=== PATIENT | male | born 1990 | race Caucasian/White ===

== ENCOUNTER 2017-04-01 12:02 | Emergency (ER) | payer OTHER ==
[2017-04-01 12:17] VITALS: BP 145/73; PULSE 93; TEMP 98.5; BMI 23.4
--- NOTE | 2017-04-01 14:00 | PDOC ---
History of Present Illness - General Chief Complaint: Sore Throat Stated Complaint: SORE THROAT, COUGH Time Seen by Provider: 04/01/17 12:56 History Source: Patient Exam Limitations: No Limitations - History of Present Illness Initial Comments: 04/01/17 13:58 26 yr male c/o sore throat and cough for 3 days no fever or chills. non smoker, no medical history. Past History - Past Medical History Allergies/Adverse Reactions: Allergies Allergy/AdvReac Type Severity Reaction Status Date / Time No Known Allergies Allergy Verified 04/01/17 12:17 Home Medications: Ambulatory Orders NK [No Known Home Medication] 04/01/17 Other medical history: NONE - Psycho/Social/Smoking Cessation Hx Anxiety: No Suicidal Ideation: No Smoking History: Never smoked Hx Alcohol Use: Yes (SOCIAL) Drug/Substance Use Hx: No Substance Use Type: None *Physical Exam - Vital Signs Last Vital Signs Temp Pulse Resp BP Pulse Ox 98.5 F 93 H 18 145/73 99 04/01/17 12:14 04/01/17 12:14 04/01/17 12:14 04/01/17 12:14 04/01/17 12:14 - Physical Exam General Appearance: Yes: Nourished, Appropriately Dressed HEENT: positive: EOMI, ACACIA, Normal ENT Inspection, TMs Normal, Pharynx Normal Neck: positive: Supple Respiratory/Chest: positive: Lungs Clear, Normal Breath Sounds. negative: Chest Tender Cardiovascular: positive: Regular Rhythm, Regular Rate ED Treatment Course - ADDITIONAL ORDERS Additional order review: 04/01/17 13:06 Group A Strep Rapid Antigen - Final Throat *DC/Admit/Observation/Transfer Diagnosis at time of Disposition: Viral pharyngitis - Discharge Dispostion Disposition: HOME Condition at time of disposition: Good - Referrals Referrals: [facility] [Provider Group] - Patient Instructions Additional Instructions: drink pleanty of water gargle with warm salt water 4-5 times a day take advil (ibuprofen, motrin over the counter) as prescribed for pain you can get any over the counter cough and sore throat drops/lozengers you choose return to er for any worsening symptoms or follow with [facility] for follow up
[2017-04-01] MEDS ORDERED: ALBUTEROL SO4 0.083% IH SOL 2.5 MG/3 ML VIAL.NEB. NEB ONE ×2 (14:01→14:04)
== END 2017-04-01 14:18 | disposition home or self-care (01) ==
LOC: JERFT 12:02
PROC: 3E0F7GC Introduction of Other Therapeutic Substance into Respiratory Tract, Via Natural or Artificial Opening (ICD-10-PCS; principal; 2017-04-01)
DX: J02.8 Acute pharyngitis due to other specified organisms (principal); B97.89 Other viral agents as the cause of diseases classified elsewhere
CPT/HCPCS: 87070; 87430; 94640; 99281-25

== ENCOUNTER 2017-06-26 17:29 | Emergency (ER) | payer OTHER ==
[2017-06-26 17:49] VITALS: BP 142/89; PULSE 110; BMI 22.3
[2017-06-26] MEDS ORDERED: IBUPROFEN 400 MG TABLET (FP) PO ONE ×2 (18:27→18:32)
--- NOTE | 2017-06-26 18:36 | PDOC ---
History of Present Illness - General Chief Complaint: Cold Symptoms Stated Complaint: HEADACHE Time Seen by Provider: 06/26/17 18:18 History Source: Patient Exam Limitations: No Limitations - History of Present Illness Initial Comments: 06/26/17 18:34 27 yr male with fever and sore throat and pain with deep breath and diarrhea since this AM. no sick contacts, pt has no medical history, no surgical history. denies abd pain , neg nausea or vomiting. no urinary complaints. 06/26/17 19:56 Past History - Past Medical History Allergies/Adverse Reactions: Allergies Allergy/AdvReac Type Severity Reaction Status Date / Time No Known Allergies Allergy Verified 06/26/17 17:46 Home Medications: Ambulatory Orders NK [No Known Home Medication] 04/01/17 Other medical history: denies. - Psycho/Social/Smoking Cessation Hx Anxiety: No Suicidal Ideation: No Smoking History: Current some day smoker Have you smoked in the past 12 months: Yes Information on smoking cessation initiated: No Hx Alcohol Use: Yes (SOCIAL) Drug/Substance Use Hx: No Substance Use Type: None *Physical Exam - Vital Signs Last Vital Signs Temp Pulse Resp BP Pulse Ox 102.2 F H 110 H 19 142/89 100 06/26/17 17:46 06/26/17 17:46 06/26/17 17:46 06/26/17 17:46 06/26/17 17:46 - Physical Exam General Appearance: Yes: Nourished, Appropriately Dressed HEENT: positive: EOMI, ACACIA. negative: Pharyngeal Erythema, Tonsillar Exudate Neck: positive: Supple Respiratory/Chest: positive: Lungs Clear, Normal Breath Sounds Cardiovascular: positive: Regular Rhythm, Regular Rate Gastrointestinal/Abdominal: positive: Normal Bowel Sounds, Soft. negative: Tender Musculoskeletal: positive: Normal Inspection Extremity: positive: Normal Capillary Refill, Normal Inspection, Normal Range of Motion Integumentary: positive: Normal Color, Dry, Warm Neurologic: positive: police inspector II-XII NML intact, Fully Oriented, Alert, Normal Mood/ Affect, Normal Response, Motor Strength 5/5 ED Treatment Course - RADIOLOGY Radiology Studies Ordered: Category Date Time Status CHEST PA & LAT [RAD] Stat Radiology 06/26/17 18:34 Ordered - Medications Given in the ED: ED Medications Discontinued Medications Generic Name Dose Route Start Last Admin Trade Name Freq PRN Reason Stop Dose Admin Ibuprofen 800 mg 06/26/17 18:27 06/26/17 18:33 Motrin - PO 06/26/17 18:28 800 mg ONCE ONE Administration Medical Decision Making - Medical Decision Making 06/26/17 18:55 cc: fever,sore throat, pain with deep breath started this AM denies drug use, pos smoking history non toxic will give ibuprofen 800mg now and recheck temp , rapid strep 06/26/17 19:49 negative strep negative chest xray will check flu pt feels better wants to go home 06/27/17 11:48 flu negative. spoke to pt today and he is feeling better tolerating fluids and solids well no vomiting or diarrhea no fever. *DC/Admit/Observation/Transfer Diagnosis at time of Disposition: Viral illness - Discharge Dispostion Disposition: HOME Condition at time of disposition: Good - Referrals Referrals: [facility] [Primary Care Provider] - - Patient Instructions Additional Instructions: drink pleanty of fluids take motrin 600mg every 6hrs for fever or chills bland diet rice, toast bannanas return if any worsening symptoms or see your doctor in 2 days for follow up
[2017-06-26 19:35] VITALS: TEMP 100.1
== END 2017-06-26 19:58 | disposition home or self-care (01) ==
LOC: JERFT 17:29
DX: B34.9 Viral infection, unspecified (principal)
CPT/HCPCS: 71020-TC; 87070; 87430; 87804; 99281-25

== ENCOUNTER 2018-11-22 18:55 | Emergency (ER) | payer OTHER ==
[2018-11-22 19:13] VITALS: BMI 22.3
--- NOTE | 2018-11-22 19:19 | PDOC ---
History of Present Illness - General Chief Complaint: Seizure Stated Complaint: SEIZURE Time Seen by Provider: 11/22/18 19:19 History Source: Patient Exam Limitations: Clinical Condition - History of Present Illness Initial Comments: Pt is a 28 yo M, with PMH of meningioma, who is presenting via EMS after a witnessed generalized tonic-clonic sz. Pt was at work, when his coworkers found him on the floor shaking and was unresponsive. They do not know if he fell or hit his head. Pt was post-ictal, and was unsure of where he was. Pt currently complains only of mild headache and photophobia. Pt was on Topamax for sz prophylaxis after meningioma dx, but stopped taking it "maybe a couple of months ago" when his insurance lapsed. His last radiation treatment for meningioma was "during the summer May or June" and did not follow-up with any further appointments (Onc team at [facility]). He lives in a home with his friend and the friend's family members. He is unsure of when his last sz was, but knows he had them in the past. Pt states he has been feeling very tired lately, with nausea, nasal congestion, polydipsia and polyuria. Pt denies any recent fevers/chills, vision changes, chest pain, palpitations, SOB, vomiting, abdominal pain, urinary symptoms, diarrhea/constipation, or leg swelling. Social: Pt denies any cigarette, alcohol, or drug use. Remote history of THC. Pt denies any recent travel or sick contacts. Surgical: no relevant history. Family: grandparents with CAD/HTN/PR. 11/22/18 20:16 Past History - Travel Traveled outside of the country in the last 30 days: No Close contact w/someone who was outside of country & ill: No - Past Medical History Allergies/Adverse Reactions: Allergies Allergy/AdvReac Type Severity Reaction Status Date / Time No Known Allergies Allergy Verified 06/26/17 17:46 Home Medications: Ambulatory Orders Levetiracetam [Keppra] 500 mg PO BID 30 Days #60 tablet 11/22/18 Cancer: Yes (brain tumor) COPD: No CHF: No Diabetes: No HTN: No Hypercholesterolemia: No - Surgical History Abdominal Surgery: No Cardiac Surgery: No GI Surgery: No Neurologic Surgery: No - Family Disease History Family Disease History: Heart Disease: Grandparents - Suicide/Smoking/Psychosocial Hx Smoking History: Unknown if ever smoked Have you smoked in the past 12 months: No Information on smoking cessation initiated: No Hx Alcohol Use: No Drug/Substance Use Hx: No Substance Use Type: None Review of Systems - Review of Systems Able to Perform ROS?: Yes Is the patient limited Lao proficient: No Constitutional: Yes: Weight Stable. No: Chills, Diaphoresis, Fever, Loss of Appetite, Weakness HEENTM: Yes: Nose Congestion. No: Blurred Vision, Double Vision, Nose Bleeding , Throat Pain, Throat Swelling, Difficulty Swallowing Respiratory: No: Cough, Orthopnea, Shortness of Breath Cardiac (ROS): Yes: Syncope. No: Chest Pain, Edema, Irregular Heart Rate, Lightheadedness, Palpitations, Chest Tightness ABD/GI: Yes: Nausea. No: Constipated, Diarrhea, Poor Appetite, Poor Fluid Intake, Vomiting, Abdominal cramping : No: Burning, Dysuria, Frequency, Hematuria, Pain, Urgency Musculoskeletal: No: Back Pain, Joint Pain, Muscle Weakness, Neck Pain Integumentary: No: Rash Neurological: Yes: See HPI, Headache, Seizure. No: Paresthesia, Tingling, Tremors, Weakness, Unsteady Gait, Ataxia, Dizziness Psychiatric: No: Sleep Pattern Change, Change in Appetite Endocrine: Yes: Increased Thirst, Increased Urine. No: Intolerance to Cold, Intolerance to Heat, Change in Weight Hematologic/Lymphatic: No: Anemia, Blood Clots, Easy Bleeding, Easy Bruising All Other Systems: Reviewed and Negative *Physical Exam - Vital Signs Last Vital Signs Temp Pulse Resp BP Pulse Ox 98.0 F 86 16 140/85 100 11/22/18 18:55 11/22/18 18:55 11/22/18 18:55 11/22/18 18:55 11/22/18 18:55 - Physical Exam Comments: PE showed pt alert and oriented, mildly confused but able to answer questions. Mild photophobia, no neck stiffness or meningeal signs. security systems sales representative generally intact, muscular strength and sensation intact. Pharyngeal erythema with tonsillar swelling, no exudate. Dry nasal discharge. No evidence of tongue biting or incontinence. Clear heart and lung sounds, no JVD, b/l pedal edema, or heart murmur. No abdominal or CVA tenderness to palpation, no rebound, no guarding. 11/22/18 20:33 General Appearance: Yes: Nourished, Appropriately Dressed. No: Apparent Distress HEENT: positive: EOMI, ACACIA, Normal Voice, Symmetrical, TMs Normal, Pharynx Normal, Photophobia, Pharyngeal Erythema, Tonsillar Erythema, Nasal Congestion, Hearing Grossly Normal. negative: Normal ENT Inspection, Pale Conjunctivae, Scleral Icterus (R), Scleral Icterus (L), Muffled/Hoarse voice, Tonsillar Exudate, Rhinorrhea, Sinus Tenderness, TM Bulging, TM Dull, TM Erythema, Lesions , Excessive drooling, Thrush Neck: positive: Trachea midline, Normal Thyroid, Supple. negative: Tender, Rigid, Decreased range of motion, Stridor, Lymphadenopathy (R), Lymphadenopathy (L), Rigidity Respiratory/Chest: positive: Lungs Clear, Normal Breath Sounds. negative: Chest Tender, Respiratory Distress, Accessory Muscle Use, Crackles, Stridor, Wheezing Cardiovascular: positive: Regular Rhythm, Regular Rate, S1, S2. negative: Edema , JVD, Murmur Vascular Pulses: Carotid (R): 4+, Carotid (L): 4+ Gastrointestinal/Abdominal: positive: Normal Bowel Sounds, Flat, Soft. negative : Tender, Organomegaly, Pulsatile Mass, Distended, Guarding, Rebound Rectal Exam: positive: deferred Lymphatic: negative: Adenopathy, Tenderness Musculoskeletal: positive: Normal Inspection. negative: CVA Tenderness Extremity: positive: Normal Capillary Refill, Normal Inspection, Normal Range of Motion, Pelvis Stable. negative: Tender, Pedal Edema Integumentary: positive: Normal Color, Dry, Warm. negative: Jaundice, Clammy, Diaphoresis, Rash Neurologic: positive: security systems sales representative II-XII NML intact, Fully Oriented, Alert, Normal Mood/ Affect, Normal Response, Motor Strength 5/5, Confused (slight confusion, but answers most questions). negative: EOM Palsy, Facial Droop, Numbness, Sensory Deficit, Finger to Nose Moderate Sedation - Procedure Monitoring Vital Signs: Procedure Monitoring Vital Signs Temperature 98.0 F 11/22/18 18:55 Pulse Rate 86 11/22/18 18:55 Respiratory Rate 16 11/22/18 18:55 Blood Pressure 140/85 11/22/18 18:55 O2 Sat by Pulse Oximetry (%) 100 11/22/18 18:55 ED Treatment Course - LABORATORY CBC & Chemistry Diagram: 11/22/18 19:34 11/22/18 19:34 Medical Decision Making - Medical Decision Making Pt was seen at bedside, also will be seen by attending Dr. Dumont. Pt is a 28 yo M, with PMH of meningioma, who is presenting via EMS after a witnessed generalized tonic-clonic sz. Pt was at work, when his coworkers found him on the floor shaking and was unresponsive. They do not know if he fell or hit his head. Pt was post-ictal, and was unsure of where he was. Pt currently complains only of mild headache and photophobia. Pt was on Topamax for sz prophylaxis after meningioma dx, but stopped taking it "maybe a couple of months ago" when his insurance lapsed. His last radiation treatment for meningioma was "during the summer May or June" and did not follow-up with any further appointments ( Neuro team/Dr. Alissa Dunham at [facility]). He lives in a home with his friend and the friend's family members. He is unsure of when his last sz was, but knows he had them in the past. Pt states he has been feeling very tired lately, with nausea, nasal congestion, polydipsia and polyuria. Pt denies any recent fevers/ chills, vision changes, chest pain, palpitations, SOB, vomiting, abdominal pain , urinary symptoms, diarrhea/constipation, or leg swelling. Vitals stable, pt afebrile. PE showed pt alert and oriented, mildly confused but able to answer questions. Mild photophobia, no neck stiffness or meningeal signs. security systems sales representative generally intact, muscular strength and sensation intact. Pharyngeal erythema with tonsillar swelling, no exudate. Dry nasal discharge. No evidence of tongue biting or incontinence. Clear heart and lung sounds, no JVD, b/l pedal edema, or heart murmur. No abdominal or CVA tenderness to palpation, no rebound, no guarding. Considering medication non-compliance, spread of meningioma, electrolyte imbalances, preceding illness (influenza, strep throat, URI), illicit drug use. Ordered work-up including CBC, CMP, Mg, influenza, strep, UA, urine tox, urine culture, non-contrast head CT. Provided 650 mg PO tylenol, 1 g IVPB keppra, and 4 mg IV zofran for improvement of nausea and headache. Will continue to reassess pt and monitor for symptomatic improvement. 11/22/18 19:35 CBC: WBC 12.5 (infectious vs sz activity) UA: trace ketones, 1+ blood; micro negative for infection. 11/22/18 19:46 Pt was taken for head CT, pending read. CMP and Mg WNL Utox negative Influenza and strep throat negative 11/22/18 20:34 Impression: No evidence of a focal intracranial lesion or hemorrhage seen. Correlate clinically to determine further evaluation and follow-up. Correlation with a contrast-enhanced MRI of the brain could be obtained to evaluate for a meningioma, considering the clinical history. 11/22/18 21:17 Spoke with [facility] team (Neurology - Dr. Zamudio). She stated the pts last visit in November 2017 for syncopal episodes. MRI and EEG were done at that time and were normal, no meningioma. She stated Dr. Alissa Dunham left [facility], so the pt must have followed her in a different hospital or clinic. She does not know any medication or dosage that was prescribed to him. Calling Dr. Ghosh (on-call Neurology) for further suggestions and will likely admit pt for observation for consult and further work-up/determining medications. 11/22/18 21:58 Hospitalist team will come to see the pt. Awaiting return call from Dr. Ghosh. 11/22/18 22:19 Second page sent to neurology. 11/22/18 22:38 Dr. Ghosh suggested 500 mg PO keppra, and to be seen outpatient in clinic. He will follow the pt. Sent keppra to pt pharmacy. Pts coworkers are at bedside to take the pt home and to pickle water pump operator his prescriptions. Pt had no further sz activity in the department. Considering normal lab results and imaging, pt can be discharged to home with follow-up. Pt advised to follow-up with PCP in 1-2 days and has been referred to neurology (Dr. Ghosh). Strict return precautions provided with pt understanding. 11/22/18 22:49 *DC/Admit/Observation/Transfer Diagnosis at time of Disposition: Seizure, Meningioma - Discharge Dispostion Disposition: HOME Condition at time of disposition: Improved Decision to Admit order: No - Prescriptions Prescriptions: Levetiracetam [Keppra] 500 mg PO BID 30 Days #60 tablet - Referrals Referrals: [facility] [Provider Group] Leon Ghosh MD [Staff Physician] - - Patient Instructions Printed Discharge Instructions: DI for Seizure Disorder -- Adult Additional Instructions: You were seen in the ER today for a seizure. The results of your labs and imaging today were normal. Please follow-up with your primary care doctor and neurology within 1-2 days to discuss your visit and make sure your symptoms have improved. Please return to the ER if you have any further seizure activity or confusion, development of fevers or chills, loss of consciousness, inability to tolerate food or fluids, or any other concerns. - Post Discharge Activity
[2018-11-22] MEDS ORDERED: ACETAMINOPHEN 325 MG TABLET (FP) PO ONE (19:21)
[2018-11-22] MEDS ORDERED: ONDANSETRON 4 MG/2 ML VIAL IVPUSH ONE (19:21)
[2018-11-22 19:38] LABS: URINE APPEARANCE CLEAR; URINE BILIRUBIN NEGATIVE (<2.0 mg/dL); URINE COLOR STRAW; URINE GLUCOSE (UA) NEGATIVE (NEGATIVE); URINE KETONE TRACE (NEGATIVE); URINE LEUK ESTERASE NEGATIVE (NEGATIVE); URINE NITRITE NEGATIVE (NEGATIVE); URINE PROTEIN NEGATIVE (NEGATIVE); URINE UROBILINOGEN NEGATIVE mg/dL (0.2-1.0)
[2018-11-22 19:42] LABS: BASO % 0.5 % (0-2.0); EOS % 0.2 % (0-4.5); HEMATOCRIT 45.5 % (35.4-49); HEMOGLOBIN 15.5 GM/dL (11.7-16.9); LYMPH % 8.7 % (8-40); MCH 29.7 pg (25.7-33.7); MCHC 34.1 g/dl (32.0-35.9); MEAN CELL VOLUME 87.3 fl (80-96); MEAN PLT VOLUME 8.9 fl (7.5-11.1); MONO % 2.6 % (3.8-10.2); PLATELET COUNT 212 K/MM3 (134-434); RBC 5.22 M/mm3 (4.00-5.60); RDW 13.4 % (11.9-15.9); WHITE BLOOD COUNT 12.5 K/mm3 (4.0-10.0)
[2018-11-22] MEDS ORDERED: levETIRAcetam 500 MG/5 ML INJECTION VIAL IVPB ONE ×2 (19:43→19:52)
[2018-11-22] MEDS ORDERED: ACETAMINOPHEN 325 MG TABLET (FP) ONE (19:53)
[2018-11-22] MEDS ORDERED: ONDANSETRON 4 MG/2 ML VIAL ONE (19:53)
[2018-11-22 20:06] LABS: COCAINE, UR NEGATIVE ng/ml (CUTOFF=300); METHADONE, UR NEGATIVE ng/ml (CUTOFF=300); OPIATES, URI NEGATIVE ng/ml (CUTOFF=300); PHENCYCLIDINE,URINE NEGATIVE ng/ml (CUTOFF=25); URINE BARBITURATES NEGATIVE ng/ml (CUTOFF=200); URINE BENZODIAZEPINES NEGATIVE ng/ml (CUTOFF=200)
[2018-11-22 20:07] LABS: URINE AMPHETAMINES NEGATIVE ng/ml (CUTOFF=500)
[2018-11-22 20:07] LABS: ALBUMIN 4.8 g/dl (3.4-5.0); ALK PHOS 66 U/L (45-117); ANION GAP 9 MMOL/L (8-16); BILIRUBIN,TOTAL 0.3 mg/dL (0.2-1); BLOOD UREA NITROGEN 13 mg/dL (7-18); CALCIUM 8.9 mg/dL (8.5-10.1); CHLORIDE 107 mmol/L (98-107); CO2 26 mmol/L (21-32); CREATININE 0.9 mg/dL (0.55-1.3); GLUCOSE,RANDOM 105 mg/dL (74-106); MAGNESIUM 2.4 mg/dL (1.8-2.4); POTASSIUM 3.5 mmol/L (3.5-5.1); SGOT/AST 14 U/L (15-37); SGPT/ALT 31 U/L (13-61); SODIUM 142 mmol/L (136-145); TOT PROT 7.8 g/dl (6.4-8.2)
--- NOTE | 2018-11-22 21:35 | PDOC ---
Attending Attestation - HPI HPI: 11/22/18 21:36 The patient is a 28 year old male, with a significant past medical history of brain meningioma (last radiation summer 2017) and HTN (untreated), who presents to the emergency department today via EMS complaining of headache s/p seizure ( noncompliant with topamax due to insurance loss) and associated photophobia. The patients cousin reports he was at work when his co-workers found him shaking on the floor. As per patients cousins the seizure lasted 3-5 minutes. The patient denies tongue biting. He denies other vision changes. Denies any urinary or bowel incontinence at the time of the seizure. The patient denies recent fevers, chills, headache or dizziness. He denies recent nausea, vomit, diarrhea or constipation. He denies recent dysuria, frequency, urgency or hematuria. He denies recent chest pain or shortness of breath. Allergies: NKA Past surgical history: None reported. Neurologist: Dr. Shantal Dunham #[phone] (last visit: Nov 2017) - Physicial Exam PE: 11/22/18 21:37 GENERAL: Well developed, well nourished. Awake and alert. No acute distress. HEENT: No tongue trauma. No scalp laceration. Normocephalic, atraumatic. PERRLA, EOMI. No conjunctival pallor. Sclera are non-icteric. Moist mucous membranes. Oropharynx is clear. NECK: Supple. Full ROM. No JVD. Carotid pulses 2+ and symmetric, without bruits. No thyromegaly. No lymphadenopathy. CARDIOVASCULAR: Regular rate and rhythm. No murmurs, rubs, or gallops. Distal pulses are 2+ and symmetric. PULMONARY: No evidence of respiratory distress. Lungs clear to auscultation bilaterally. No wheezing, rales or rhonchi. ABDOMINAL: Soft. Non-tender. Non-distended. No rebound or guarding. No organomegaly. Normoactive bowel sounds. MUSCULOSKELETAL Normal range of motion at all joints. No bony deformities or tenderness. No CVA tenderness. EXTREMITIES: No cyanosis. No clubbing. No edema. No calf tenderness. SKIN: Warm and dry. Normal capillary refill. No rashes. No jaundice. NEUROLOGICAL: +Postictal. Alert, awake, appropriate. Cranial nerves 2-12 intact. No deficits to light touch and temperature in face, upper extremities and lower extremities. No motor deficits in the in face, upper extremities and lower extremities. Normoreflexic in the upper and lower extremities. Normal speech. Toes are down-going bilaterally. PSYCHIATRIC: Cooperative. Good eye contact. Appropriate mood and affect. - Medical Decision Making 11/22/18 21:37 Dr. Shantal Dunham was paged via phone service. Awaiting call back. 11/22/18 21:[address] Zamudio, cotton machine operator for patient's neurologist Dr. Dunham, case discussed with resident Dr. Hdez. <Racheal Evangelista - Last Filed: 11/22/18 21:56> - Resident Resident Name: Violeta Hdez - ED Attending Attestation I have performed the following: I have examined & evaluated the patient, The case was reviewed & discussed with the resident, I agree w/resident's findings & plan, Exceptions are as noted - Medical Decision Making 11/22/18 22:49 pt has no focal neuro deficits at si time. He is conversant,axox3 but does not remember his medications because he has not taken them in a long time due to insurance issues. He currently is employed and has medical insurance It is not clear if this pt had a meningioma after speaking to the [facility] neurologist who saw him for syncopal episodes last November ct scan head no evidence of meningioma We spoke with neurology Dr. Ghosh who recommended the pt be started on keppra 500 BID and followup with Dr Ghosh in the clinic IMP seizures <Radha Dumont - Last Filed: 11/22/18 22:54> Attestations - Attestations 11/22/18 21:39 Documentation prepared by Racheal Evangelista, acting as medical education manager for Radha Dumont MD. <Racheal Evangelista - Last Filed: 11/22/18 21:56>
[2018-11-22 23:14] VITALS: BP 136/78; PULSE 88; TEMP 98.5
--- NOTE | 2018-11-23 16:44 | EKG ---
Test Reason : Blood Pressure : / mmHG Vent. 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 ABNORMAL ECG Confirmed by MD SHOLA, BRONSON ([id number]) on 11/23/2018 4:43:52 PM Referred By: Confirmed By:BRONSON JOLLEY MD
== END 2018-11-22 23:14 | disposition home or self-care (01) ==
LOC: JER 18:55 → SUPCPDRO 18:55 → JER 23:14
PROC: 3E033GC Introduction of Other Therapeutic Substance into Peripheral Vein, Percutaneous Approach (ICD-10-PCS; principal; 2018-11-22)
PROC: 3E033GC Introduction of Other Therapeutic Substance into Peripheral Vein, Percutaneous Approach (ICD-10-PCS; 2018-11-22)
DX: R56.9 Unspecified convulsions (principal); I10 Essential (primary) hypertension
CPT/HCPCS: 36415; 70450-TC; 80053; 80307; 81003; 81015; 83735; 85025; 87070; 87086; 87804; 87880; 93005; 93010; 96374; 96375; 99283-25

== ENCOUNTER 2019-11-01 17:06 | Emergency (ER) | payer OTHER ==
--- NOTE | 2019-11-01 17:58 | PDOC ---
History of Present Illness - General Chief Complaint: Seizure Stated Complaint: SEIZURE APPROX 10 MINS AGO Time Seen by Provider: 11/01/19 17:58 History Source: Patient - History of Present Illness Initial Comments: 11/01/19 19:06 Mr. Zheng is a 29 y/o man with hx epilepsy p/w witnessed seizure 30 min prior to arrival. He is accompanied by his partner who contributes to the history. His partner reports that while they were driving he said something unusual and nonsensical, and when he turned to look at him Mr. Zheng was staring forward blankly. His partner pulled the car over and removed his seatbelt, and Mr. Zheng began to seize for approx 30 seconds. He was unresponsive for approx one minute and had a brief post-ictal phase. 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 He reports taking Keppra twice daily, though he cannot recall the dosage. He reports that he typically takes it once in the morning, and once twelve hours later, although this has become inconsistent with his finals schedule. His prior neurologist was Dr. Shantal Andino at [facility], although she changed practices and he has not followed up with a new neurologist in the last year. He also has not followed with a PCP in the last year either. He denies any insurance difficulties or other barriers to attaining his AEDs. He denies any drug use. His last seizure was last week, and he endorses some cough, shortness of breath, and generalized fatigue. He did not present to the hospital at that time. His most recent seizure before that was in July, and November before that. Past History - Past Medical History Allergies/Adverse Reactions: Allergies Allergy/AdvReac Type Severity Reaction Status Date / Time No Known Allergies Allergy Verified 11/01/19 17:36 Home Medications: Ambulatory Orders Levetiracetam [Keppra] 500 mg PO BID 30 Days #60 tablet 11/22/18 Cancer: Yes (brain tumor) COPD: No CHF: No Diabetes: No HTN: No Hypercholesterolemia: No - Surgical History Abdominal Surgery: No Cardiac Surgery: No GI Surgery: No Neurologic Surgery: No - Psycho Social/Smoking Cessation Hx Smoking History: Current some day smoker Have you smoked in the past 12 months: Yes Hx Alcohol Use: Yes (SOCIAL) Drug/Substance Use Hx: No Substance Use Type: None Review of Systems - Review of Systems Able to Perform ROS?: Yes Comments:: 11/01/19 19:15 ROS: GENERAL/CONSTITUTIONAL: Chills, fever, generalized weakness. HEAD, EYES, EARS, NOSE AND THROAT: No change in vision. No ear pain or discharge. No sore throat. CARDIOVASCULAR: Shortness of breath. No chest pain RESPIRATORY: Cough. No wheezing, or hemoptysis. GASTROINTESTINAL: No nausea, vomiting, diarrhea or constipation. GENITOURINARY: No dysuria, frequency, or change in urination. MUSCULOSKELETAL: No joint or muscle swelling or pain. No neck or back pain. SKIN: No rash NEUROLOGIC: No headache, vertigo, loss of consciousness, or change in strength/ sensation. ENDOCRINE: No increased thirst. No abnormal weight change HEMATOLOGIC/LYMPHATIC: No anemia, easy bleeding, or history of blood clots. ALLERGIC/IMMUNOLOGIC: No hives or skin allergy. *Physical Exam - Physical Exam 11/01/19 19:16 PE: GENERAL: Awake, alert, and fully oriented, in no acute distress HEAD: No signs of trauma, normocephalic, atraumatic EYES: PERRLA, EOMI, sclera anicteric, conjunctiva clear ENT: Auricles normal inspection, hearing grossly normal, nares patent, oropharynx clear without exudates. Moist mucosa NECK: Normal ROM, supple, no lymphadenopathy, JVD, or masses LUNGS: No distress, speaks full sentences, clear to auscultation bilaterally HEART: Regular rate and rhythm, normal S1 and S2, no murmurs, rubs or gallops, peripheral pulses normal and equal bilaterally. ABDOMEN: Soft, nontender, normoactive bowel sounds. No guarding, no rebound. No masses EXTREMITIES : Normal inspection, Normal range of motion, no edema. No clubbing or cyanosis NEUROLOGICAL: Cranial nerves II through XII grossly intact. Normal speech, normal gait, no focal sensorimotor deficits SKIN: Warm, Dry, normal turgor, no rashes or lesions noted ED Treatment Course - LABORATORY CBC & Chemistry Diagram: 11/01/19 19:35 11/01/19 19:35 Medical Decision Making - Medical Decision Making 11/01/19 19:17 29M w/hx epilepsy p/w witnessed seizure while driving Discharge - Discharge Information Problems reviewed: Yes Clinical Impression/Diagnosis: Seizure, Influenza A Condition: Stable Disposition: HOME - Admission No - Follow up/Referral Referrals: Leon Ghosh MD [Staff Physician] - [facility] [place] [facility] [place] [Provider Group] - Patient Discharge Instructions Patient Printed Discharge Instructions: DI for Seizure Disorder -- Adult, DI for Influenza -- Adult Additional Instructions: You were seen in the ER after a seizure. You tested positive for Influenza A. Please be sure to follow up with Neurology as soon as possible, in the next 2-3 days. Also be sure to follow up with your primary care provider as soon as possible, in the next 7 days. Be sure to take your medications as prescribed, as missing doses can lead to seizures. It is possible that a combination of the infection, lack of sleep, and missing medication doses led to the seizure. Please take motrin as needed for your symptoms, every 8 hours as needed. - Post Discharge Activity
[2019-11-01 18:17] VITALS: BMI 25.1
[2019-11-01] MEDS ORDERED: ACETAMINOPHEN 325 MG TABLET (FP) PO ONE (18:46)
[2019-11-01] MEDS ORDERED: levETIRAcetam 500 MG/5 ML INJECTION VIAL IVPB ONE ×2 (18:46→19:19)
--- NOTE | 2019-11-01 18:55 | PDOC ---
Attending Attestation - Resident Resident Name: Adis Camp - ED Attending Attestation I have performed the following: I have examined & evaluated the patient, The case was reviewed & discussed with the resident, I agree w/resident's findings & plan, Exceptions are as noted - HPI HPI: 11/01/19 18:50 29y M hx of seizures, eunice presents with witnesesd seizure episode. Pt notes he was in the car when he had a seizure lsating approx 40 seconds an dstopped pontaneously. Pt notes that he has been having fever, congestion, sore throat, headache, cough, sob for the past week or so. Patient states that he had a seizure approximately 1 week ago as well. Patient notes that this month he has been working and studying more often, has decreased sleep from 8 hours to proximally 5 hours a night. Due to his work schedule he also was inconsistent with taking his evening dose of Keppra, occasionally skipping it and sometimes delaying it by several hours until he gets back tomorrow. Patient denies any headache, dizziness, blurry vision, vision changes, numbness , tingling, weakness. GENERAL: The patient is awake, alert, and fully oriented, Nontoxic - in no acute distress. HEAD: Normocephalic, atraumatic. EYES: extraocular movements intact, sclera anicteric, conjunctiva clear. ENT: Normal voice, Moist mucous membranes. NECK: Normal range of motion, supple LUNGS: Breath sounds equal, clear to auscultation bilaterally. No wheezes, no rhonchi, no rales. HEART: Regular rate and rhythm, normal S1 and S2 without murmur, rub or gallop. ABDOMEN: Soft, nontender, No guarding, no rebound. No CVA tenderness EXTREMITIES: Normal range of motion, no edema. NEUROLOGICAL: No facial assymetry, Normal speech, movin all 4 extremitie sponneously and symmetriccally PSYCH: Normal mood, normal affect. SKIN: hot to touch, Dry, normal turgor, seizure - likely due to decreased seizure threshold secondary to med noncompliance, recent illness, decreased sleep. Patient has not yet taken his evening dose of Keppra will give that dose. Will obtain basic labs, influenza We will attempt to reach out to his neurologist, however do not anticipate changing his dosage due to multiple factors that may decrease his seizure threshold. - Physicial Exam PE: 11/03/19 02:21 see above - Medical Decision Making 11/01/19 21:26 Patient's blood work is reviewed Heart Score/ECG Review - ECG Impressions Comment:: 11/01/19 21:26 Twelve-lead EKG was performed and reviewed by me. There is normal sinus rhythm with a normal rate. Rate of 99 The axis is normal. The intervals are normal. There is normal R wave progression Nonspecific T wave abnormality Impression: Normal twelve-lead EKG
[2019-11-01] MEDS ORDERED: ACETAMINOPHEN 325 MG TABLET (FP) ONE (19:19)
[2019-11-01 19:47] LABS: BASO % 0.4 % (0-2.0); HEMATOCRIT 44.9 % (35.4-49); HEMOGLOBIN 14.9 GM/dL (11.7-16.9); LYMPH % 8.6 % (8-40); MCH 29.4 pg (25.7-33.7); MCHC 33.1 g/dl (32.0-35.9); MEAN CELL VOLUME 88.7 fl (80-96); MEAN PLT VOLUME 9.1 fl (7.5-11.1); MONO % 7.8 % (3.8-10.2); NEUT % 83.2 % (42.8-82.8); PLATELET COUNT 176 K/MM3 (134-434); RBC 5.06 M/mm3 (4.00-5.60); RDW 13.8 % (11.9-15.9); WHITE BLOOD COUNT 12.4 K/mm3 (4.0-10.0)
[2019-11-01 20:36] LABS: ALK PHOS 64 U/L (45-117); ANION GAP 8 MMOL/L (8-16); BILIRUBIN,TOTAL 0.4 mg/dL (0.2-1); BLOOD UREA NITROGEN 5.5 mg/dL (7-18); CALCIUM 8.5 mg/dL (8.5-10.1); CHLORIDE 107 mmol/L (98-107); CO2 24 mmol/L (21-32); CREATININE 1.1 mg/dL (0.55-1.3); GLUCOSE,RANDOM 123 mg/dL (74-106); POTASSIUM 3.8 mmol/L (3.5-5.1); SGOT/AST 25 U/L (15-37); SGPT/ALT 30 U/L (13-61); SODIUM 138 mmol/L (136-145); TOT PROT 7.4 g/dl (6.4-8.2)
[2019-11-01 21:01] VITALS: BP 129/81; PULSE 90; TEMP 100.7
[2019-11-01] MEDS ORDERED: IBUPROFEN 600 MG TABLET (FP) PO ONE ×2 (21:27→21:29)
--- NOTE | 2019-11-02 17:40 | EKG ---
Test Reason : Blood Pressure : / mmHG Vent. Rate : 099 BPM Atrial Rate : 099 BPM P-R Int : 130 ms QRS Dur : 094 ms QT Int : 310 ms P-R-T Axes : 046 078 028 degrees QTc Int : 397 ms NORMAL SINUS RHYTHM NONSPECIFIC T WAVE ABNORMALITY ABNORMAL ECG WHEN COMPARED WITH ECG OF 22-NOV-2018 19:44, NO SIGNIFICANT CHANGE WAS FOUND CLINICAL CORRELATION IS RECOMMENDED Confirmed by DARYL PEREZ, DARRIN ([id number]) on 11/02/2019 5:39:47 PM Referred By: Confirmed By:DARRIN BRITO MD
== END 2019-11-01 22:16 | disposition home or self-care (01) ==
LOC: JER 17:06
PROC: 3E033GC Introduction of Other Therapeutic Substance into Peripheral Vein, Percutaneous Approach (ICD-10-PCS; principal; 2019-11-01)
DX: R56.9 Unspecified convulsions (principal); J09.X2 Influenza due to identified novel influenza A virus with other respiratory manifestations; F17.210 Nicotine dependence, cigarettes, uncomplicated; Z85.841 Personal history of malignant neoplasm of brain
CPT/HCPCS: 36415; 71045-TC-FY; 80053; 82550; 82553; 82962; 84484; 85025; 87804; 93005; 93010; 99284-25